=== PATIENT | female | born 1960 | race Caucasian/White ===

== ENCOUNTER 2021-11-02 09:32 | Outpatient (CLI) | payer BC, SELFPAY ==
[2021-11-01 11:44] LABS: BASOPHILS # (AUTO) 0.1 K/uL (0.0-0.2); BASOPHILS % (AUTO) 0.9 % (0.0-2.0); EOSINOPHILS # (AUTO) 0.1 K/uL (0.0-0.4); EOSINOPHILS % (AUTO) 1.9 % (0.0-4.0); HEMATOCRIT 40.6 % (36-48); HEMOGLOBIN 13.7 g/dL (12.0-16.0); LYMPHOCYTES # (AUTO) 1.4 K/uL (1.0-5.5); LYMPHOCYTES % (AUTO) 22.9 % (20.5-51.5); MEAN CORPUSCULAR HEMOGLOBIN 30 pg (27-31); MEAN CORPUSCULAR HGB CONC 34 % (32-36); MEAN CORPUSCULAR VOLUME 90 fL (79.0-98.0); MONOCYTES # (AUTO) 0.4 K/uL (0.0-1.0); NEUTROPHILS # (AUTO) 4.2 K/uL (1.8-7.7); NEUTROPHILS % (AUTO) 68.3 % (40.0-70.0); PLATELET COUNT (AUTO) 361 K/uL (130-430); RED BLOOD CELL COUNT(AUTO) 4.51 MIL/uL (4.2-6.2); WHITE BLOOD COUNT (AUTO) 6.2 K/uL (4.8-10.8)
[2021-11-01 12:18] LABS: ALBUMIN 3.7 g/dL (3.4-4.8); CREATININE 0.87 mg/dL (0.55-1.30); POTASSIUM 4.3 mmol/L (3.5-5.1); TOTAL BILIRUBIN 0.3 mg/dL (0.0-1.0)
[~2021-11-02] VITALS: Ht 167.6 cm; Wt 105.7 kg
== END 2021-11-02 13:00 | disposition home or self-care (01) ==
LOC: SLB 09:32
PROVIDERS: ATTEND Obstetrics & Gynecology
DX: Z01.812 Encounter for preprocedural laboratory examination (principal); Z20.822 Contact with and (suspected) exposure to COVID-19; N95.0 Postmenopausal bleeding
CPT/HCPCS: 36415; 80053; 85025; 86886; 86900; 86901

== ENCOUNTER 2022-01-10 09:07 | Day surgery (SDC) | payer BC, SELFPAY ==
[~2022-01-10] VITALS: Ht 167.6 cm; Wt 104.3 kg
[2022-01-10] MEDS ORDERED: PROPOFOL 200MG/ 20ML VIAL (DIPRIVAN) IV ONE (15:50)
[2022-01-10] MEDS ORDERED: LR 1,000 ML IV.SOLN IV ONE (15:50)
[2022-01-10] MEDS ORDERED: SEVOFLURANE 15 MIN GAS INH ONE (15:50)
[2022-01-10] MEDS ORDERED: NS 1000 ML IV.SOLN IV ONE (15:50)
[2022-01-10] MEDS ORDERED: fentaNYL CITRATE 250 MCG/5 ML AMP ONE (15:50)
[2022-01-10] MEDS ORDERED: ONDANSETRON HCL 4 MG/2 ML VIAL ONE (15:50)
[2022-01-10] MEDS ORDERED: MIDAZOLAM HCL 5 MG/ML VIAL (VERSED) IV ONE (15:50)
[2022-01-10] MEDS ORDERED: NS IRRIG SOLN 1000 ML IR ONE ×2 (15:50)
[2022-01-10] MEDS ORDERED: ONDANSETRON HCL 4 MG/2 ML VIAL IVP PRN (16:30)
[2022-01-10] MEDS ORDERED: fentaNYL CITRATE/PF 100 MCG/2 ML AMP IVP PRN ×2 (16:30)
[2022-01-10] MEDS ORDERED: METOCLOPRAMIDE HCL 10 MG/2 ML VIAL IVP PRN (16:30)
[2022-01-10 18:13] VITALS: BP_SYST 139
== END 2022-01-10 18:10 | disposition home or self-care (01) ==
LOC: SDS 09:07 → SMU 09:09 → EDSTATUS 11:00 → SDS 18:10
PROVIDERS: ATTEND Obstetrics & Gynecology
DX: N95.0 Postmenopausal bleeding (principal); J45.909 Unspecified asthma, uncomplicated; Z90.49 Acquired absence of other specified parts of digestive tract; Z20.822 Contact with and (suspected) exposure to COVID-19; Z79.899 Other long term (current) drug therapy
CPT/HCPCS: 36415; 58558; 86886; 86900; 86901; 87426; 88305; J2250; J2405; J2704; J3010; J7030; J7120; U0003